=== PATIENT | male | born 1995 | race Caucasian/White ===

== ENCOUNTER 2017-06-15 23:10 | Emergency (ER) | payer OTHER ==
[~2017-06-15] VITALS: Ht 180.3 cm; Wt 59.0 kg
[~2017-06-15 23:10] MED LIST: MOTRIN400 MG PO
[2017-06-15 23:22] VITALS: BP 124/71
== END 2017-06-16 00:55 | disposition home or self-care (01) ==
LOC: ED 23:10
DX: S20.212A Contusion of left front wall of thorax, initial encounter (principal); F10.10 Alcohol abuse, uncomplicated; Y04.2XXA Assault by strike against or bumped into by another person, initial encounter; Y93.89 Activity, other specified; Y92.89 Other specified places as the place of occurrence of the external cause; Y99.8 Other external cause status

== ENCOUNTER 2022-08-23 12:44 | Emergency (ER) | payer BC ==
[~2022-08-23] VITALS: Ht 180.3 cm; Wt 79.4 kg
[2022-08-23 12:55] VITALS: BP 144/82
[2022-08-23] MEDS ORDERED: Motrin,Rufen800 MG PO (13:16)
[2022-08-23] MEDS ORDERED: AMOXICILLIN500 M2 PO (13:16)
== END 2022-08-23 13:35 | disposition home or self-care (01) ==
LOC: ED 12:44
DX: K08.89 Other specified disorders of teeth and supporting structures (principal)

== ENCOUNTER 2022-11-03 22:09 | Emergency (ER) | payer BC ==
[~2022-11-03] VITALS: Ht 180.3 cm; Wt 81.6 kg
[~2022-11-03 22:09] MED LIST changes: +AMOXICILLIN500 M2 PO; +Motrin,Rufen800 MG PO
[2022-11-03 22:17] VITALS: BP 152/75
[2022-11-03] MEDS ORDERED: PROPRANOLOL HCL20 MG PO (22:20)
[2022-11-03 22:38] LABS: BILIRUBIN Negative (Negative); BLOOD 3+ (Negative); CLARITY Turbid (Clear); COLOR Red (Yellow); GLUCOSE Negative (Negative); KETONE Negative (Negative); LEUKO ESTERASE 1+ (Negative); NITRITE Negative (Negative); UROBILINOGEN 0.2 E.U./dl (0.0-1.0)
[2022-11-03 22:50] LABS: RBC TNTC rbc/hpf (0-2)
[2022-11-03] MEDS ORDERED: FLOMAX0.4 MG PO (23:45)
[2022-11-03] MEDS ORDERED: ONDANSETRON4 MG SL (23:45)
[2022-11-03] MEDS ORDERED: HYDROCODONE-AC1 EAC1 PO (23:45)
== END 2022-11-04 00:05 | disposition home or self-care (01) ==
LOC: ED 22:09
PROVIDERS: Internal Medicine
DX: N13.2 Hydronephrosis with renal and ureteral calculous obstruction (principal); N13.4 Hydroureter; I10 Essential (primary) hypertension; R11.0 Nausea

== ENCOUNTER → 2022-11-30 | Outpatient (CLI) | payer BC ==
[~2022-11-30] MED LIST changes: +FLOMAX0.4 MG PO; +HYDROCODONE-AC1 EAC1 PO; +ONDANSETRON4 MG SL; +PROPRANOLOL HCL20 MG PO
== END | disposition home or self-care (01) ==
LOC: US 15:45
PROVIDERS: ATTEND Urology
DX: N20.0 Calculus of kidney (principal)

== ENCOUNTER → 2024-09-22 | Outpatient (CLI) | payer OTHER | END | disposition home or self-care (01) | LOC: RAD 10:48 | PROVIDERS: ATTEND Family Medicine | DX: M41.86 Other forms of scoliosis, lumbar region (principal); M43.8X4 Other specified deforming dorsopathies, thoracic region ==